=== PATIENT | female | born 1980 | race Caucasian/White ===

== ENCOUNTER 2020-01-24 15:50 | Emergency (ER) | payer SELFPAY ==
[~2020-01-24] VITALS: Ht 182.8 cm; Wt 108.9 kg
[2020-01-24] MEDS ORDERED: NORCO 5-325 TA1 EACH PO (17:47)
[2020-01-24] MEDS ORDERED: AUGMENTIN 875875 MG PO (17:47)
== END 2020-01-24 18:30 | disposition home or self-care (01) ==
LOC: ED 15:50
DX: S62.525B Nondisplaced fracture of distal phalanx of left thumb, initial encounter for open fracture (principal); W54.0XXA Bitten by dog, initial encounter; Y93.89 Activity, other specified; Y92.89 Other specified places as the place of occurrence of the external cause; Y99.8 Other external cause status

== ENCOUNTER 2025-02-16 07:47 | Emergency (ER) | payer SELFPAY ==
[~2025-02-16] VITALS: Wt 61.2 kg
[~2025-02-16 07:47] MED LIST: AUGMENTIN 875875 MG PO; NORCO 5-325 TA1 EACH PO
[2025-02-16] MEDS ORDERED: AMOX-CLAV 875-1 EACH PO (07:58)
[2025-02-16] MEDS ORDERED: MELOXICAM15 MG PO (08:00)
== END 2025-02-16 08:04 | disposition home or self-care (01) ==
LOC: ED 07:47
DX: K04.7 Periapical abscess without sinus (principal); K02.9 Dental caries, unspecified; F17.200 Nicotine dependence, unspecified, uncomplicated